=== PATIENT | female | born 1965 | race Caucasian/White ===

== ENCOUNTER → 2017-10-15 09:51 | Outpatient (CLI) | payer OTHER, SELFPAY ==
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
== END ==
PROVIDERS: Visit Provider Orthopaedic Surgery
DX: M25.561 Pain in right knee (principal); M25.562 Pain in left knee
CPT/HCPCS: 73564

== ENCOUNTER → 2018-06-16 10:22 | Outpatient (CLI) | payer OTHER, SELFPAY ==
--- NOTE | 2018-06-16 10:24 | MRI_ITS ---
STUDY: MRI RIGHT KNEE REASON FOR EXAM: Right knee pain, patellar instability, trauma many years ago. TECHNIQUE: Standardized fat and water weighted pulse sequences were obtained in all 3 orthogonal planes. COMPARISON: Radiographs 10/15/2017. FINDINGS: Normal medial meniscus. Normal hyaline cartilage of the medial femorotibial compartment. There is a small marginal osteophyte of the medial femoral condyle. Normal medial femoral condyle and tibial plateau. Normal medial collateral ligamentous complex (MCL). Normal distal semimembranosus, gracilis and semitendinosus tendons. Normal lateral meniscus. Normal hyaline cartilage of the lateral femorotibial compartment. Normal lateral femoral condyle and tibial plateau. Normal proximal tibiofibular articulation. Normal lateral collateral (fibular) ligament. Normal popliteus tendon. Normal biceps femoris tendon. Normal anterior cruciate ligament (ACL). Normal posterior cruciate ligament (PCL). Normal congruent patellofemoral articulation. There is arthrosis of the patellofemoral compartment with very small marginal osteophytes, chondral thinning of the patella (T2 sagittal image 13) and mild subchondral cystic change of the patella. Normal medial and lateral patellar retinaculum. Normal quadriceps tendon. There is an intrasubstance partial tear of the lateral aspect of the patellar tendon (T2 sagittal image 8; T2 axial images 16-22). Normal Hoffa's fat pad. There is no joint effusion. There is mild prepatellar bursitis (T2 sagittal images 12, 13) and mild edema in the anterior subcutis adipose space. There is a multipartite patella with cystic change at the synchondrosis (T2 coronal images 24, 25). MRI/Lower Ext Joint Only (Routine) IMPRESSION: Patellofemoral arthrosis. Intrasubstance partial tear of the lateral aspect of the patellar tendon. Mild prepatellar bursitis. Multipartite patella. Electronically Signed: Todd Lino MD at 14:04 EST Tel , Service support ,
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
== END ==
PROVIDERS: Referring Provider Orthopaedic Surgery; Visit Provider Orthopaedic Surgery
DX: M25.361 Other instability, right knee (principal)
CPT/HCPCS: 73721